=== PATIENT | female | born 1980 ===

== ENCOUNTER 2018-05-31 15:28 | Emergency (ER) | payer OTHER ==
[2018-05-31 15:35] VITALS: BP 126/85; PULSE 69; RESP 20; TEMP 97.9; O2SAT 99
--- NOTE | 2018-05-31 15:46 | C.PDOC ---
History Of Present Illness Patient is a 37 y/o F presenting after fall. Patient reports that she was walking outside when she tripped and fell forward onto the dorsum of her R hand. She is complaining of pain and swelling to R hand. Denies head trauma. Denies other injury. Time Seen by Provider: 05/31/18 15:37 Chief Complaint (Nursing): Upper Extremity Problem/Injury Past Medical History Vital Signs: Last Vital Signs Temp 97.9 F 05/31/18 15:32 Pulse 69 05/31/18 15:32 Resp 20 05/31/18 15:32 BP 126/85 05/31/18 15:32 Pulse Ox 99 05/31/18 16:35 Family History: States: Unknown Family Hx - Social History Hx Alcohol Use: No Hx Substance Use: No - Immunization History Hx Tetanus Toxoid Vaccination: No Hx Influenza Vaccination: No Hx Pneumococcal Vaccination: No Review Of Systems Constitutional: Negative for: Fever, Chills Cardiovascular: Negative for: Chest Pain Respiratory: Negative for: Cough, SOB with Excertion, Wheezing Gastrointestinal: Negative for: Nausea, Vomiting, Abdominal Pain, Diarrhea, Constipation Genitourinary: Negative for: Dysuria Musculoskeletal: Positive for: Hand Pain (R hand pain). Negative for: Neck Pain , Shoulder Pain, Arm Pain, Back Pain, Leg Pain, Foot Pain Skin: Negative for: Lesions Neurological: Negative for: Weakness, Numbness Physical Exam - Physical Exam Appears: Well, Non-toxic, No Acute Distress Skin: Normal Color, Warm, Dry Head: Atraumatic, Normacephalic Eye(s): bilateral: Normal Inspection, PERRL, EOMI Neck: No Midline Cervical Tenderness Back: Normal Inspection, No Vertebral Tenderness Extremity: Swelling (swelling and tenderness to dorsum of R hand at base of 5th finger. Decreased flexion of fingers secondary to pain. No snuff box tenderness. No tenderness at wrist or elbow. Normal ROM at wrist and elbow. Distal pulses intact. no break in skin) Neurological/Psych: Oriented x3 Gait: Steady ED Course And Treatment O2 Sat by Pulse Oximetry: 99 Medical Decision Making Medical Decision Making: Xray shows fracture of R 5th proximal phalanx. Splint and mayra tape applied. Patient instructed to follow-up with orthopedics Disposition - Disposition Referrals: Ayan Thibodeaux III, MD [Staff Provider] - Disposition: HOME/ ROUTINE Disposition Time: 15:56 Condition: GOOD Additional Instructions: Follow-up with Dr. Thibodeaux. Follow-up with PMD within 2 days. Return to ED if condition worsens. Tylenol for pain. Keep splint in place Instructions: Finger Fracture, Finger Fracture (DC) Forms: Gen Discharge Inst Swedish, [facility] (Swedish), Work Excuse - Clinical Impression Clinical Impression: Proximal phalanx fracture of finger
--- NOTE | 2018-05-31 16:13 | RAD ---
PROCEDURE: Right Hand Radiographs. HISTORY: R hand pain after fall COMPARISON: None. FINDINGS: BONES: Minimally displaced fracture involving the 5th proximal phalanx metaphysis. JOINTS: Unremarkable. SOFT TISSUES: 5th digit soft tissue swelling. OTHER FINDINGS: None. IMPRESSION: Minimally displaced 5th proximal phalanx metaphyseal fracture.
== END 2018-05-31 16:28 | disposition home or self-care (01) ==
LOC: C.ER 15:28
DX: S62.616A Displaced fracture of proximal phalanx of right little finger, initial encounter for closed fracture (principal); W01.0XXA Fall on same level from slipping, tripping and stumbling without subsequent striking against object, initial encounter; Y93.01 Activity, walking, marching and hiking